=== PATIENT | male | born 1985 | race Caucasian/White ===

== ENCOUNTER 2017-06-16 20:59 | Inpatient (IN) | payer OTHER ==
[2017-06-16 21:48] LABS: Hematocrit 44 % (42-52); Hemoglobin 15.4 g/dl (14.0-18.0); Mean Corpuscular HGB Conc 35 g/dl (31-36); Mean Corpuscular Hemoglobin 32 pg (27-31); Mean Corpuscular Volume 91 fL (80-94); Mean Platelet Volume 7 um3 (7.4-10.4); Red Blood Count 4.81 10^6/ul (4.0-5.4); Red Cell Distribution Width 13 % (10.5-15); White Blood Count 11.1 10^3/ul (3.5-10.8)
[2017-06-16 22:02] LABS: ALT 33 U/L (7-52); AST 37 U/L (13-39); Albumin 4.6 g/dL (3.2-5.2); Alkaline Phosphatase 121 U/L (34-104); Anion Gap 12 mmol/L (2-11); BUN/Creatinine Ratio 11.7 (8-20); Blood Urea Nitrogen 15 mg/dL (6-24); CO2 Carbon Dioxide 24 mmol/L (22-32); Calcium 9.8 mg/dL (8.6-10.3); Chloride 98 mmol/L (101-111); EGFR African American 83.8 (>60); EGFR Non-African American 65.1 (>60); Globulin 3.3 g/dL (2-4); Glucose 96 mg/dL (70-100); Potassium 3.8 mmol/L (3.5-5.0); Sodium 134 mmol/L (133-145); Total Protein 7.9 g/dL (6.4-8.9)
[2017-06-16 22:31] LABS: Acetaminophen < 15 mcg/mL; Alcohol < 10 mg/dL (<10); Salicylate < 2.50 mg/dL (<30)
[2017-06-16 22:42] LABS: TSH (Thyroid Stimulating Horm) 2.24 mcIU/mL (0.34-5.60)
--- NOTE | 2017-06-16 22:47 | ED ---
Yanira Self Rebecca, scribed for Cruzito Trujillo MD on 06/16/17 at 2139 . Psychiatric Complaint - HPI Summary HPI Summary: Pt is a 32 y/o M BIBA accompanied by police as a 941 who presents to ED for schizophrenic like symptoms, per nurse's triage. When asked by he presented today the pt reports "it's time" and that he "needed a safe place." Per nurse's triage, he expresses paranoid thoughts. Per triage, when asked most questions the patient would state "I'm not sure." SHx daily alcohol use (3 beers) and occasional marijuana use. Level 5 caveat due to uncooperativity. - History Of Current Complaint Chief Complaint: EDMentalHealth Time Seen by Provider: 06/16/17 21:18 Hx Obtained From: EMS, Medical Records - Triage Hx From Patient Unobtainable Due To: Other - Uncooperativity Onset/Duration: Still Present - Allergies/Home Medications Allergies/Adverse Reactions: Allergies Allergy/AdvReac Type Severity Reaction Status Date / Time No Known Allergies Allergy Verified 06/16/17 21:37 PMH/Surg Hx/FS Hx/Imm Hx Endocrine/Hematology History: Denies: Hx Diabetes Cardiovascular History: Denies: Hx Coronary Artery Disease, Hx Hypertension Psychiatric History: Reports: Other Psychiatric Issues/Disorders - "unknown but mental health" per nurse's triage Infectious Disease History: Unable to Obtain/Confirm Infectious Disease History: Denies: Traveled Outside the [place] in Last 30 Days - Family History Known Family History: Negative: Cardiac Disease, Hypertension, Diabetes - Social History Alcohol Use: Daily Alcohol Amount: 3 beers a day Substance Use Type: Reports: Marijuana Substance Use Comment - Amount & Last Used: occasional Smoking Status (MU): Unknown if Ever Smoked Review of Systems - ROS Summary Review of Systems Summary: Level 5 caveat due to uncooperativity. Negative: Fever Positive: Other - Presents for schizo-like sx and presents with paranoid thoughts, per nurse's triage All Other Systems Reviewed And Are Negative: No Physical Exam Triage Information Reviewed: Yes Vital Signs On Initial Exam: Initial Vitals Temp Pulse Resp BP Pulse Ox 98.3 F 108 18 139/84 100 06/16/17 21:29 06/16/17 21:29 06/16/17 21:29 06/16/17 21:29 06/16/17 21:29 Vital Signs Reviewed: Yes Appearance: Positive: Well-Appearing, No Pain Distress Skin: Positive: Warm Head/Face: Positive: Normal Head/Face Inspection Eyes: Positive: SANDOR ENT: Positive: Hearing grossly normal Neck: Positive: Supple Respiratory/Lung Sounds: Positive: Breath Sounds Present Cardiovascular: Positive: RRR Abdomen Description: Positive: Nontender, Soft Bowel Sounds: Positive: Present Musculoskeletal: Positive: Strength/ROM Intact Neurological: Positive: Alert, Oriented to Person Place, Time Psychiatric: Positive: Anxious Diagnostics - Vital Signs Vital Signs Temp Pulse Resp BP Pulse Ox 06/16/17 21:29 98.3 F 108 18 139/84 100 - Laboratory Result Diagrams: 06/16/17 21:40 06/16/17 21:40 Lab Statement: Any lab studies that have been ordered have been reviewed, and results considered in the medical decision making process. Course/Dx - Course Assessment/Plan: Pt is a 32 y/o M BIBA accompanied by police as a 941 who presents to ED for schizophrenic like symptoms, per nurse's triage. When asked by he presented today the pt reports "it's time" and that he "needed a safe place." Per nurse's triage, he expresses paranoid thoughts. Per triage, when asked most questions the patient would state "I'm not sure." SHx daily alcohol use (3 beers) and occasional marijuana use. Level 5 caveat due to uncooperativity. Elevated BP noted and advised to f/u with PCP. - Differential Dx/Clinical Impression Provider Diagnosis: Psychosis Discharge - Discharge Plan Condition: Fair Disposition: [facility]ATRIC [facility] [place] The documentation as recorded by the Yanira navas Rebecca accurately reflects the service I personally performed and the decisions made by me, Cruzito Trujillo MD.
[2017-06-17] MEDS: risperiDONE-M * 1 MG TAB.ORADIS PO SCH (20:08)
[2017-06-17] MEDS ORDERED: LORazepam TAB(*) 1 MG PO ONE (22:50)
[2017-06-17] MEDS ORDERED: LORazepam TAB(*) 1 MG ONE (23:03)
[2017-06-18] MEDS ORDERED: Acetaminophen TAB* 325 MG PO PRN (01:04)
[2017-06-18] MEDS ORDERED: Al Hydrox/Mg Hydrox/Simet LIQ* 30 ML UDC PO PRN (01:04)
--- NOTE | 2017-06-18 01:34 | HP ---
PSYCHIATRIC HISTORY AND PHYSICAL: DATE OF ADMISSION: 06/17/17 JUSTIFICATION FOR ADMISSION: The patient is in need of 24-hour supervision and care secondary to bizarre, delusional, psychotic behaviors that render him unable to receive effective treatment in a less restrictive setting. CHIEF COMPLAINT: "This mob has put the patterns into my skin, the same patterns that you see in the wall or in a carpet." HISTORY OF PRESENT ILLNESS: Mr. Andersen is a 32-year-old single, homosexual white male, with putative history of ADHD and bipolar disorder, who was brought to the emergency room by the [place] [employer] on a 9.41 status presumably due to bizarre, delusional behavior. It is not exactly clear what the circumstances of his pickup were, but he was quite tearful in the emergency room and delusional stating that he had been given several diseases against his will. He had a difficult time answering questions. Had marked speech latency often responding simply "I don't know" or just answering "no" or nodding his head. He displayed poverty of thought and frequent circumstantial responses. He did not appear to have much awareness in terms of where he was or the circumstances of why he was brought to the hospital. It was felt by the evaluating team that he could not manage his own safety in the outpatient environment. When I see him on our unit, he is dressed in blue scrubs and staring forward, not socializing with peers. He is guarded and it takes a while to coax him into one of the consultation rooms. He immediately tells me his concerns that someone has placed marijuana in the food available to patients on the unit. He appears to be slightly less blocked than his initial presentation in the emergency room given the fact that he is able to provide comprehensive answers to questions, although he does so with much latency and seems to have difficulty staying on topic. He is telling me that he is the victim of persecution by the local mafia that they have written patterns into his skin and that he sees these patterns in the salvador and the carpeting on our unit. He does not feel safe on our unit feeling that the mob will come to harm him. I did gather that for a long time he has been seeing clinicians at the [facility], most recently Tiffany Vanegas NP. In our emergency room, he had stated something to the effect that a recent increase in his p.r.n. Ativan dose from half to a full milligrams had somehow set him off. We do not have collateral information from [facility] at this point since it is the weekend. At any rate, he does admit at one point that he had been on antipsychotic treatment in the past and that he has a diagnosis of bipolar disorder. He is not accepting a medical psychiatric explanation for his feelings about the mafia, however, and he is determined that a group of people is trying to harm him. The patient denies depressed mood. He denies suicidal or homicidal thoughts. He denies any recent abuse of drugs, although we do not have a urine drug screen result at this time. I understand that his father visited the unit having come all the way from [place]; however, there is no phone number available for this family member and the patient was unable to recall what the contact information for his family was. PAST PSYCHIATRIC HISTORY: The patient states that he has bipolar and ADHD and receives treatment at [facility]. He denies having been hospitalized on a psychiatric unit in the past, although I am not entirely certain this is the truth. He states that he has been on multiple antipsychotics in the past but cannot remember the names. He does deny being on any mood stabilizers such as lithium or Depakote. Most recently, he has been treated according to the state controlled substances web site with Vyvanse 60 mg daily and lorazepam 1 mg every 6 hours as needed for anxiety. He denies any past history of harming himself or any past history of violence. SUBSTANCE ABUSE HISTORY: The patient denies abusing alcohol or illicit drugs. He denies abusing tobacco. FAMILY HISTORY: Noncontributory. PAST MEDICAL HISTORY: Noncontributory. SOCIAL HISTORY: The patient states that he was born and raised in [place], graduating from high school and then went to college at [employer] and had a degree in philosophy. From there, he transitioned in 2010 moving to [place] to enroll in the graduate program in [employer] where he is continuing to work on a Ph.D. He does live locally here in [place]. He identifies as homosexual, although he is not in any current relationship. He denies any history of legal problems. He denies any history of service. He states that his parents are still , but they are . He is the oldest apparently of 5 total children, all from the same parents. He has never been or had children himself. REVIEW OF SYSTEMS: The patient denies headache or double vision. He denies cough, sore throat, chest pain, or difficulty breathing. He is endorsing some rashes or what he calls patterns, which have been drawn into his skin; however, I do not see any evidence of this. He denies any recent changes in weight, rashes, enlarged lymph nodes, or difficulty ambulating. PHYSICAL EXAMINATION VITAL SIGNS: Blood pressure is elevated at 150/73, heart rate is 109, respiratory rate is 16, temperature is 98.7 degrees Fahrenheit, oxygen saturation is 100% on room air. HEENT: Head is normocephalic, atraumatic. NECK: Supple. CHEST: Clear to auscultation bilaterally. CARDIAC: Reveals normal heart sounds. ABDOMEN: Soft and nontender. MUSCULOSKELETAL: Negative for any evidence of edema. NEUROLOGICAL: He is grossly intact with no focal deficits. SKIN: Warm and dry. MENTAL STATUS EXAM: The patient is young white male with brown hair and eyeglasses. He is wearing blue patient scrubs. He appears to be clean and well groomed. He is cooperative, but slightly suspicious at this observer. He makes fair eye contact. Speech does show marked latencies at times and his speech patterns tend to be slow and somewhat soft in terms of rate and tone. Mood appears to be somewhat anxious with slightly blunted affect. Thought process is disorganized with thought blocking at times. Thought content is significant for persecutory delusions that he is being followed and persecuted by the local [facility]. He denies suicidal or homicidal ideations, although he feels that he is very much under threat from harm from others. He denies auditory or visual hallucinations. His insight and judgment are markedly impaired at this time. Cognitively, he is awake and alert with what would appear to be an average intellect. LABORATORY DATA: CBC, his white blood cells are slightly elevated at 11.1, absolute neutrophil similarly elevated at 8.9. Complete metabolic panel reveals mild increase in creatinine at 1.28 and alk phos elevated at 121. His serum alcohol was negligible and there are no urine studies at this time. DIAGNOSES: [place] I: Unspecified psychotic disorder, rule out amphetamine-induced psychosis versus bipolar [place] with psychotic features. [place] II: Deferred. [place] III: Mild renal insufficiency. [place] IV: Moderate academic stressors. [place] V: At this time is 30. IMPRESSION: The patient is a 32-year-old single, homosexual white male with a putative history of bipolar disorder and attention deficit hyperactivity disorder, who was brought in by the [place] Police on a 9.41 status presumably for disorganized and psychotic behavior in the community. He presents very much as paranoid delusional with thought blocking, speech latencies, and difficulty formulating his thoughts. He is guarded and does not feel safe due to his paranoia. I have tried to find the contact information for his father but had been unsuccessful, although this parent has visited the unit at least once today. I will certainly be trying to get further collateral information. PLAN: The patient will be started on risperidone 1 mg p.o. q.h.s. He is certainly encouraged to avail himself with all milieu activities including individual and group psychotherapies. We are needing collateral information and will be reaching out to his father as well as Tiffany Vanegas NP, at the [facility]. We will establish appointments for the patient for close followup care in the community prior to his discharge from our unit. Also, we should consider when he is doing better perhaps getting a brain CT if in fact this does represent a first-break psychosis. [id number]/CPS #: [id number] CESAR
[2017-06-18] MEDS: Vitamin THERAPEUTIC TAB PO SCH (09:43)
[2017-06-18] MEDS: Gabapentin CAP(*) 300 MG PO SCH ×2 (13:45→20:19)
--- NOTE | 2017-06-18 14:22 | PN ---
Subjective - Subjective Service Type: 79091 Hosp care 15 min low complexity Subjective: Damon, aka "Sage", presents as much better organized. His AH have resolved and he no longer believes that the mafia is after him. I left a message with his outpatient provider, [facility] and spoke over the phone with his father, Damon Sinclair Sr. Father believes that this incident was caused by a combination of ativan, alcohol, bupropion and no sleep over several days. Patient agrees with this assessment. Patient tolerating low dose risperidone well with no complaints. Objective - Appearance Appearance: Well Developed/Nourished Dysmorphic Features: No Hygiene: Normal Grooming: Well Kept - Behavior Psychomotor Activities: Normal Exhibits Abnormal Movement: No - Attitude and Relatedness Attitude and Relatedness: Well Related Eye Contact: Fair - Speech Quality: Unpressured Latencies: Long Quantity: Terse - Mood Patient's Decription of Mood: "Okay" - Affect Observed Affect: Tense Affect Consistent with: Dysphoria - Thought Process Patient's Thought Process: Circumstantial Thought Content: Yes Paranoid Ideation, No Passive Wish, No Suicidal Planning, No Homicidal Ideation - Sensorium Experiencing Hallucinations: No, Sensorium is Clear Type of Hallucinations: Visual: No, Auditory: No, Command: No - Level of Consciousness Level of Consciousness: Alert Orientation: Yes Intact, Yes Orientated to Time, Yes Orientated to Place, Yes Orientated to Person - Impulse Control Impulse Control: Poor - Insight and Judgement Insight and Judgement: Impaired - Group Participation Particating in Group Activities: Yes - Medication Management Medication Management Adherence: Yes Assessment - Assessment Merits Inpatient Hospitalization: Pending Safe DC Plan Inpatient DSM-IV Dx: Unspecified Psychotic DO Clinical Impression: 32 y.o. single, homosexual, white male with a putative history of bipolar and ADHD brought to the hospital by the police, presumably due to disorganized, psychotic behavior. Plan - Plan Treatment Plan: Name: DAMON SINCLAIR Birthdate: 1985 [id number] The patient is now taking risperidone 1mg PO qhs and gabapentin 300mg PO TID. We are holding psychostimulants and lorazepam. Patient appears less psychotic today. Await collateral from Tiffany Vanegas. Continue inpatient treatment. Continued Medication Management: Start Medication Medications: Current Medications Acetaminophen (Tylenol Tab*) 650 mg PO Q4H PRN PRN Reason: PAIN or TEMP > 101 F Al Hydrox/Mg Hydrox/Simethicone (Maalox Plus*) 30 ml PO Q4H PRN PRN Reason: INDIGESTION Gabapentin (Neurontin Cap(*)) 300 mg PO TID [facility] Last Admin: 06/18/17 13:45 Dose: 300 mg Hydroxyzine HCl (Atarax Tab*) 50 mg PO Q6H PRN PRN Reason: AGITATION/ANXIETY/INSOMNIA Multivitamins (Theragran Tab*) 1 tab PO DAILY [facility] Last Admin: 06/18/17 09:43 Dose: 1 tab Risperidone (Risperdal-M Tab *) 1 mg PO BEDTIME MELISSA PRN Reason: Protocol Last Admin: 06/17/17 20:08 Dose: 1 mg - Discharge Plan Discharge Plan: Inpatient Hospitalization
[2017-06-18] MEDS: risperiDONE-M * 1 MG TAB.ORADIS PO SCH (20:19)
[2017-06-18] MEDS: hydrOXYzine HCL TAB* 50 MG PO PRN (20:19)
[2017-06-19 08:21] LABS: HDL Cholesterol 44.7 mg/dL
[2017-06-19] MEDS: Gabapentin CAP(*) 300 MG PO SCH ×3 (08:50→21:04)
[2017-06-19] MEDS: Vitamin THERAPEUTIC TAB PO SCH (08:50)
--- NOTE | 2017-06-19 13:06 | PN ---
MHU: Group Therapy Note - Service Type Service Type: 82981 Group Psychotherapy - Cognitive Behavioral Group Therapy ( CBT):Patient was attentive and participatory in CBT programming this morning, and remained in good behavioral control. Patient expressed positive insights regarding relevant treatment interventions and goals.
--- NOTE | 2017-06-19 13:47 | PN ---
Subjective - Subjective Service Type: 33428 Hosp care 15 min low complexity Subjective: Sage continues to feel better today and admits to embarrassment over his thought process and delusions here in the hospital. He receives psychoeducation about the condition of bipolar disorder and is cautioned against the use of any further antidepressant or psychostimulant medications in the future. Patient is active on the unit, attending groups and social with peers and family during visits. He denies SI or HI. Objective - Appearance Appearance: Well Developed/Nourished Dysmorphic Features: No Hygiene: Normal Grooming: Well Kept - Behavior Psychomotor Activities: Normal Exhibits Abnormal Movement: No - Attitude and Relatedness Attitude and Relatedness: Cooperative Eye Contact: Good - Speech Quality: Unpressured Latencies: Normal Quantity: Appropriate - Mood Patient's Decription of Mood: "Good" - Affect Observed Affect: Fair Affect Consistent with: Euthymia - Thought Process Patient's Thought Process: Coherent Thought Content: No Passive Wish, No Suicidal Planning, No Homicidal Ideation, No Paranoid Ideation - Sensorium Experiencing Hallucinations: No, Sensorium is Clear Type of Hallucinations: Visual: No, Auditory: No, Command: No - Level of Consciousness Level of Consciousness: Alert Orientation: Yes Intact, Yes Orientated to Time, Yes Orientated to Place, Yes Orientated to Person - Impulse Control Impulse Control: Poor - Insight and Judgement Insight and Judgement: Impaired - Group Participation Particating in Group Activities: Yes - Medication Management Medication Management Adherence: Yes Assessment - Assessment Merits Inpatient Hospitalization: Consolidate Improvements, Pending Safe DC Plan Inpatient DSM-IV Dx: Unspecified Psychotic DO Clinical Impression: 32 y.o. single, homosexual, white male with a putative history of bipolar and ADHD brought to the hospital by the police, presumably due to disorganized, psychotic behavior. Plan - Plan Treatment Plan: Name: DAMON SINCLAIR Birthdate: 1985 [id number] The patient is now taking risperidone 1mg PO qhs and gabapentin 300mg PO TID. We are holding psychostimulants, antidepressants and lorazepam. Patient appears reality-focussed and likely back to his baseline today. [employer] tomorrow , 06/20, for discharge back to home. Continued Medication Management: Different Medication Medications: Current Medications Acetaminophen (Tylenol Tab*) 650 mg PO Q4H PRN PRN Reason: PAIN or TEMP > 101 F Al Hydrox/Mg Hydrox/Simethicone (Maalox Plus*) 30 ml PO Q4H PRN PRN Reason: INDIGESTION Gabapentin (Neurontin Cap(*)) 300 mg PO TID MELISSA Last Admin: 06/19/17 13:33 Dose: 300 mg Hydroxyzine HCl (Atarax Tab*) 50 mg PO Q6H PRN PRN Reason: AGITATION/ANXIETY/INSOMNIA Last Admin: 06/18/17 20:19 Dose: 50 mg Multivitamins (Theragran Tab*) 1 tab PO DAILY MELISSA Last Admin: 06/19/17 08:50 Dose: 1 tab Risperidone (Risperdal-M Tab *) 1 mg PO BEDTIME MELISSA PRN Reason: Protocol Last Admin: 06/18/17 20:19 Dose: 1 mg - Discharge Plan Discharge Plan: Outpatient Follow Up Outpatient Program: [facility] Lab Results - Lab Results Lab Results: 06/19/17 06/19/17 07:16 07:16 Hemoglobin A1c 5.2 Triglycerides 123 Cholesterol 182 LDL Cholesterol 113 HDL Cholesterol 44.7
[2017-06-19] MEDS: risperiDONE-M * 1 MG TAB.ORADIS PO SCH (21:03)
[2017-06-19] MEDS: hydrOXYzine HCL TAB* 50 MG PO PRN (21:21)
[2017-06-20] MEDS: Vitamin THERAPEUTIC TAB PO SCH (08:28)
[2017-06-20] MEDS: Gabapentin CAP(*) 300 MG PO SCH (08:28)
[2017-06-20 10:06] VITALS: BP 120/76
--- NOTE | 2017-06-20 11:40 | PN ---
MHU: Group Therapy Note - Service Type Service Type: [id number] Group Psychotherapy - Cognitive Behavioral Group Therapy ( CBT):Patient was attentive and participatory in CBT programming this morning, and remained in good behavioral control. Patient expressed positive insights regarding relevant treatment interventions and goals.
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
== END 2017-06-20 12:30 | disposition home or self-care (01) | DRG 753 ==
LOC: ED 20:59 → BSU 06-17 02:44
PROVIDERS: ADMIT Psychiatry & Neurology Psychiatry; ATTEND Psychiatry & Neurology Psychiatry
PROC: GZHZZZZ Group Psychotherapy (ICD-10-PCS; principal; 2017-06-20)
DX: F31.2 Bipolar disorder, current episode manic severe with psychotic features (principal); F12.90 Cannabis use, unspecified, uncomplicated; N28.9 Disorder of kidney and ureter, unspecified; F90.9 Attention-deficit hyperactivity disorder, unspecified type; Z72.89 Other problems related to lifestyle
CPT/HCPCS: 36415; 80053; 80061; 80320; 80329; 83036; 84443; 85025; 86703; 90853; 99222; 99231; 99238; A9270-GY; G0480